=== PATIENT | male | born 1960 | race Caucasian/White ===

== ENCOUNTER 2018-05-02 08:16 | Emergency (ER) | payer BC, OTHER ==
[2018-05-02] MEDS ORDERED: ASPIRIN 81 MG TABLET, CHEWABLE PO ONE (08:27)
--- NOTE | 2018-05-02 08:46 | ER Document Report ---
ED Medical Screen (RME) - General Chief Complaint: Chest Pain Stated Complaint: CHEST PAIN Time Seen by Provider: 05/02/18 08:45 Mode of Arrival: Ambulatory Information source: Patient Notes: 57-year-old normally healthy male is complaining of weakness, fatigue, mild shortness of breath with walking for 3 weeks. He is a healthcare prof. At the same time he developed an abscess on his medial upper right thigh that drained spontaneously. He started having burning midline retrosternal chest pain that lasts 30 minutes up to 8 times a day. He completed his Septra medication for the abscess. The past few days he has had some chills and then sweats while sitting on the sofa that he has not paid much attention to. He is a non-smoker , nondiabetic, nonhypertensive, non-hyper lipidemia. Family history is no coronary artery disease. TRAVEL OUTSIDE OF THE [place] IN LAST 30 DAYS: No - Related Data Allergies/Adverse Reactions: No Known Allergies Allergy (Verified 05/02/18 08:51) Past Medical History - Past Medical History Cardiac Medical History: Denies: Hx Coronary Artery Disease, Hx Heart Attack, Hx Hypertension Pulmonary Medical History: Denies: Hx Asthma, Hx Bronchitis, Hx COPD, Hx Pneumonia, Hx Tuberculosis Neurological Medical History: Denies: Hx Cerebrovascular Accident, Hx Seizures Renal/ Medical History: Reports: Hx Kidney Stones GI Medical History: Reports: Hx Diverticulitis Musculoskeltal Medical History: Denies Hx Arthritis, Reports Hx Musculoskeletal Trauma Psychiatric Medical History: Reports: Hx Anxiety, Hx Depression Past Surgical History: Reports: Hx Bowel Surgery - for diverticulitis, Hx Cholecystectomy, Hx Kidney (Renal Surgery) - for kidney stones, Hx Orthopedic Surgery - right knee surgery. Denies: Hx Pacemaker - Immunizations Immunizations up to date: No Hx Diphtheria, Pertussis, Tetanus Vaccination: No Physical Exam - Vital signs Vitals: Temp Pulse Resp BP Pulse Ox 98.4 F 64 16 119/74 98 05/02/18 08:34 05/02/18 08:34 05/02/18 08:34 05/02/18 08:34 05/02/18 08:34 Course - Vital Signs Vital signs: Temp Pulse Resp BP Pulse Ox 98.4 F 64 16 119/74 98 05/02/18 08:34 05/02/18 08:34 07/23/18 08:34 05/02/18 08:34 05/02/18 08:34 - Laboratory Result Diagrams: 05/02/18 08:45 05/02/18 08:45 Doctor's Discharge - Discharge Referrals: CUCA RAHMAN MD [Primary Care Provider] - Follow up as needed
[2018-05-02 09:17] LABS: ABSOLUTE EOSINOPHILS # (AUTO) 0.3 10^3/uL (0.0-0.6); ABSOLUTE LYMPHOCYTES (AUTO) 0.7 10^3/uL (0.5-4.7); ABSOLUTE MONOCYTES (AUTO) 0.5 10^3/uL (0.1-1.4); BASOPHILS % (AUTO) 0.2 % (0-2); EOSINOPHILS % (AUTO) 5.7 % (0-6); HEMATOCRIT 44.4 % (37.9-51.0); HEMOGLOBIN 15.4 g/dL (13.5-17.0); LYMPHOCYTES % (AUTO) 12.9 % (13-45); MEAN CORPUSCULAR HEMOGLOBIN 31.3 pg (27.0-33.4); MEAN CORPUSCULAR HGB CONC 34.6 g/dL (32.0-36.0); MEAN CORPUSCULAR VOLUME 91 fl (80-97); MONOCYTES % (AUTO) 8.4 % (3-13); RED CELL DISTRIBUTION WIDTH 13.3 % (11.5-14.0); SEGMENTED NEUTROPHILS % (AUTO) 72.8 % (42-78); TOTAL CELLS COUNTED % (AUTO) 100 %; WHITE BLOOD COUNT 5.5 10^3/uL (4.0-10.5)
--- NOTE | 2018-05-02 09:17 | RADIOLOGY REPORT (SQ) ---
EXAM DESCRIPTION: CHEST SINGLE VIEW COMPLETED DATE/TIME: 05/02/2018 9:05 am REASON FOR STUDY: rme cp COMPARISON: None. EXAM PARAMETERS: NUMBER OF VIEWS: One view. TECHNIQUE: Single frontal radiographic view of the chest acquired. RADIATION DOSE: NA LIMITATIONS: None. FINDINGS: LUNGS AND PLEURA: No opacities, masses or pneumothorax. No pleural effusion. MEDIASTINUM AND HILAR STRUCTURES: No masses. Contour normal. HEART AND VASCULAR STRUCTURES: Heart normal in size. Normal vasculature. BONES: No acute findings. HARDWARE: None in the chest. OTHER: Prior cholecystectomy. IMPRESSION: 1 No significant interval changes since the prior examination dated 08/07/2015. No acut e finding. TECHNICAL DOCUMENTATION: JOB ID: [id number] [employer]- All Rights Reserved Reading location - IP/workstation name: [email or web address]
[2018-05-02 09:35] LABS: ALANINE AMINOTRANSFERASE 38 U/L (21-72); ALBUMIN 4.4 g/dL (3.5-5.0); ALKALINE PHOSPHATASE 75 U/L (38-126); ANION GAP 13 (5-19); ASPARTATE AMINO TRANSFERASE 33 U/L (17-59); BILIRUBIN,DIRECT 0.3 mg/dL (0.0-0.4); BILIRUBIN,TOTAL 0.6 mg/dL (0.2-1.3); BLOOD UREA NITROGEN 19 mg/dL (7-20); CALCIUM 9.4 mg/dL (8.4-10.2); CARBON DIOXIDE 23 mmol/L (22-30); CHLORIDE 104 mmol/L (98-107); CREATINE KINASE 57 U/L (55-170); GLUCOSE 82 mg/dL (75-110); POTASSIUM 4.6 mmol/L (3.6-5.0); SODIUM 140.3 mmol/L (137-145); TOTAL PROTEIN 7.1 g/dL (6.3-8.2)
[2018-05-02 09:38] LABS: PLATELET COUNT 75 10^3/uL (150-450)
[2018-05-02 09:45] LABS: CREATINE KINASE MB 1.04 ng/mL (<4.55)
[2018-05-02 09:46] LABS: TROPONIN I < 0.012 ng/mL
--- NOTE | 2018-05-02 10:37 | ER Document Report ---
ED Cardiac - General Chief Complaint: Chest Pain Stated Complaint: CHEST PAIN Time Seen by Provider: 05/02/18 08:45 Mode of Arrival: Ambulatory Notes: 57-year-old normally healthy male is complaining of weakness, fatigue, mild shortness of breath with walking for 3 weeks. He is a education managers. At the same time he developed an abscess on his medial upper right thigh that drained spontaneously. He started having burning midline retrosternal chest pain that lasts 30 minutes up to 8 times a day. He completed his Septra medication for the abscess. The past few days he has had some chills and then sweats while sitting on the sofa that he has not paid much attention to. He is a non-smoker , nondiabetic, nonhypertensive, non-hyper lipidemia. Family history is no coronary artery disease. Patient finished the Septra this morning. When patient was placed in the room and put a gown on they noticed a red truncal rash that the patient did not know he had. No tick bite. Heart score is 1 (age ) TRAVEL OUTSIDE OF THE [place] IN LAST 30 DAYS: No - Related Data Allergies/Adverse Reactions: No Known Allergies Allergy (Verified 05/02/18 08:51) Past Medical History - General Information source: Patient - Social History Smoking Status: Never Smoker Chew tobacco use (# tins/day): No Frequency of alcohol use: Occasional Drug Abuse: None Family History: Reviewed & Not Pertinent Patient has suicidal ideation: No Patient has homicidal ideation: No - Past Medical History Cardiac Medical History: Denies: Hx Coronary Artery Disease, Hx Heart Attack, Hx Hypertension Pulmonary Medical History: Denies: Hx Asthma, Hx Bronchitis, Hx COPD, Hx Pneumonia, Hx Tuberculosis Neurological Medical History: Denies: Hx Cerebrovascular Accident, Hx Seizures Renal/ Medical History: Reports: Hx Kidney Stones. Denies: Hx Peritoneal Dialysis GI Medical History: Reports: Hx Diverticulitis Musculoskeletal Medical History: Denies Hx Arthritis, Reports Hx Musculoskeletal Trauma Psychiatric Medical History: Reports: Hx Anxiety, Hx Depression Past Surgical History: Reports: Hx Bowel Surgery - for diverticulitis, Hx Cholecystectomy, Hx Kidney (Renal Surgery) - for kidney stones, Hx Orthopedic Surgery - right knee surgery. Denies: Hx Pacemaker - Immunizations Immunizations up to date: No Hx Diphtheria, Pertussis, Tetanus Vaccination: No Physical Exam - Vital signs Vitals: Temp Pulse Resp BP Pulse Ox 98.4 F 64 16 119/74 98 05/02/18 08:34 05/02/18 08:34 05/02/18 08:34 05/02/18 08:34 05/02/18 08:34 Interpretation: Normal - General General appearance: Appears well, Alert - HEENT Head: Normocephalic, Atraumatic Eyes: Normal Conjunctiva: Normal Pupils: PERRL Tympanic membrane: Normal Mouth/Lips: Normal Mucous membranes: Normal Pharynx: Normal Neck: Supple. No: Lymphadenopathy, Thyromegally - Respiratory Respiratory status: No respiratory distress Chest status: Nontender Breath sounds: Normal Chest palpation: Normal - Cardiovascular Rhythm: Regular Heart sounds: Normal auscultation Murmur: No - Abdominal Inspection: Normal Distension: No distension Bowel sounds: Normal Tenderness: Nontender Organomegaly: No organomegaly - Back Back: Normal, Nontender - Extremities General upper extremity: Normal inspection, Nontender, Normal color, Normal ROM , Normal temperature General lower extremity: Normal inspection, Nontender, Normal color, Normal ROM , Normal temperature, Normal weight bearing. No: Noe's sign - Neurological Neuro grossly intact: Yes Cognition: Normal Orientation: AAOx4 [place] Coma Scale Eye Opening: Spontaneous [place] Coma Scale Verbal: Oriented [place] Coma Scale Motor: Obeys Commands [place] Coma Scale Total: 15 Speech: Normal Motor strength normal: LUE, RUE, LLE, RLE Sensory: Normal - Psychological Associated symptoms: Normal affect, Normal mood - Skin Skin Temperature: Warm Skin Moisture: Dry Skin Color: Normal Skin irregularity: Rash - blaching red macular trunk rash suspicious for drug rash, no desquamation, no ora or urethral lesions. Location of irregularity: Abdomen, Chest Course - Re-evaluation Re-evalutation: 05/02/18 13:14 pt feels miserable all over. no new symptoms but no chest burning at this time. Ordered GI cocktail which will be given. No conj. injection, no change in the rash on the trunk (does not itch) call the lab the second troponin did not get put on the machine for 30 minutes because they will have one analyzer. It will be 20 minutes for the results. Chest x-ray is negative, TSH is normal, chemistry and CBC platelets are 75,000. 05/02/18 13:16 05/02/18 13:30 Dr. Salter evaluated the patient and agrees that this could be a reaction to the Septra that he has been taking. 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 I am adding a titers for tick (no kn0wn) and strep. He did show me a picture of his abscess and it was definitely an abscess that looked like Staphylococcus. The GI cocktail helped the midline retrosternal burning sensation that he was having. 05/02/18 13:41 05/02/18 13:[address] Martinez and he recommends that he get the CBC repeated in 1 week that if the platelets are low due to the sulfa drug that they would be recovered fully in 2-3 weeks. I explained this to the patient and he understands the follow-up that he will need. 05/03/18 22:21 - Vital Signs Vital signs: Temp Pulse Resp BP Pulse Ox 98.4 F 64 17 117/71 98 05/02/18 13:19 05/02/18 08:34 05/02/18 14:01 05/02/18 14:01 05/02/18 14:01 - Laboratory Result Diagrams: 05/02/18 08:45 05/02/18 08:45 Laboratory results interpreted by me: 05/02/18 08:45 Plt Count 75 L Lymphocytes % 12.9 L - EKG Interpretation by Me EKG shows normal: Sinus rhythm Rate: Normal Rhythm: NSR When compared to previous EKG there are: No significant change Discharge - Discharge Clinical Impression: Rash, chest pain, possible sulfa reaction, Thrombocytopenia Condition: Good Disposition: HOME, SELF-CARE Instructions: Chest Pain of Unclear Cause ([facility]), Thrombocytopenia ([facility]) Additional Instructions: no more sulfa drugs Take all of your results to your doctor at [facility] for repeat CBC to check the platelet count in 1 week. Return to the emergency department for any skin peeling or worsening symptoms You have labs that will be resulted on or Wednesday you can call me for the results at [phone] between 9 AM and 9 PM Referrals: CUCA RAHMAN MD [Primary Care Provider] - Follow up tomorrow
--- NOTE | 2018-05-02 10:56 | EKG REPORT ---
SEVERITY:- BORDERLINE ECG - SINUS RHYTHM BORDERLINE T ABNORMALITIES, INFERIOR LEADS : Confirmed by: Claudette Doshi MD 02-May-2018 10:55:42
[2018-05-02] MEDS ORDERED: LIDOCAINE 2% VISCOUS SOLN 20 ML UDCUP PO ONE (13:11)
[2018-05-02] MEDS ORDERED: MAG HYDROX/AL HYDROX/SIMETH SUSP 30 ML UDCUP PO ONE (13:12)
[2018-05-02 14:08] VITALS: BP 117/71
[2018-05-05 08:14] LABS: ROCKY MTN SPOTTED FEV IGG EIA Positive (Negative)
== END 2018-05-02 14:17 | disposition home or self-care (01) ==
LOC: ER 08:16
DX: R07.9 Chest pain, unspecified (principal); D69.6 Thrombocytopenia, unspecified; R21 Rash and other nonspecific skin eruption; R06.02 Shortness of breath; R53.1 Weakness; R53.83 Other fatigue; R68.83 Chills (without fever); R61 Generalized hyperhidrosis
CPT/HCPCS: 93005; 99285; 36415; 82553; 82550; 84443; 85025; 85652; 86140; 80053; 84484; 86757 ×2; 86060; 71045; 93010; J3490